=== PATIENT | male | born 1980 | race Hispanic/Latino ===

== ENCOUNTER 2016-12-07 20:55 | Emergency (ER) | payer SELFPAY ==
[2016-12-07 20:59] VITALS: BP 156/103; PULSE 115; RESP 22; O2SAT 92
--- NOTE | 2016-12-07 21:20 | ED.REPORT ---
HPI-Dyspnea / Wheezing Date of Service Dec 07, 2016 ED Provider: Latoya Stanley MD A 36 year old male with no history of smoking presents to the ED complaining of difficulty breathing. This as been intermittently present for the last two months and is exacerbated by strenuous physical activities such as running and playing soccer. He also occasionally feels short of breath when lying flat. The pt denies chest pain or swelling. He experienced cold-like symptoms three weeks ago, but these symptoms seem to have resolved. Nursing Notes Stated Complaint: HARD TIME BREATHING Chief Complaint: Respiratory Complaints Nursing Notes Reviewed: Yes Allergies: Coded Allergies: No Known Allergies (Unverified , 12/07/16) Scheduled Prednisone (PredniSONE) 20 Mg Tablet 40 MG PO DAILY Scheduled PRN Albuterol Sulfate (Ventolin HFA Inhaler) 200 Puff/18 Gm Inhaler 2 PUFF INH Q4 PRN PRN For Wheezing General Time Seen by MD: 21:18 Chief Complaint Shortness of breath Hx Obtained From: Patient Arrived By: Walk-in Sudden in Onset?: No Onset Occurred: More than a week ago... Symptom Duration: Intermittent Recent Healthcare: No recent doctor visit, No recent hospitalization Similar Sx Previous: No Past Medical History Past Medical History none reported Past Surgical History surgery on head for fracture ~10 years ago Smoking History Never Smoker Social History Alcohol Use: "Social" Ambulatory Status Independent Review of Systems Review of Systems Note: denies swelling Constitutional: Denies: Chills, Fever Respiratory: Reports: Shortness of breath, Wheezing Cardiovascular: Denies: Chest pain Musculoskeletal: Denies: Back pain, Neck pain Skin: Denies Rash Complete sys rev & neg: except as marked. Physical Exam Initial Vital Signs Vital Signs (First) Date Time Temp Pulse Resp B/P Pulse Ox O2 Delivery O2 Flow Rate FiO2 12/07/16 20:59 36.2 115 22 156/103 92 Room Air Initial VS: Reviewed General/Constitutional: Awake, Alert Neck: Atraumatic, Supple, Full range of motion Respiratory / Chest: Atraumatic, Breath sounds = bilat, No respiratory distress decreased breath sounds throughout with expiratory wheezing Cardiovascular: Regular rhythm, Heart sounds NL Heart Rate / Rhythm: Positive: Tachycardia ENT: Atraumatic, Airway patent, Mucous membranes moist Abdomen: Atraumatic, Soft, Non-tender Back: Atraumatic, Full range of motion Lower Extremity / Pelvis / MS: Atraumatic, Full range of motion Skin: Atraumatic, Color NL, No rash, Warm, Dry Neurologic: Oriented X3, Speech NL, No motor deficits, No sensory deficits Head / Eyes: Atraumatic, Normocephalic, PERRL, EOMI Upper Extremity / MS: Atraumatic, Full range of motion Psychiatric: Affect NL, Mood NL Interpretation & Diagnostics Lab Results Interpretation Result Diagram: 12/07/16214912/07/16 215 Test 12/07/16 21:50 White Blood Count 9.9th/mm3 (3.8-10.1) Red Blood Count 5.55mil/mm3 (4.40-5.80) Hemoglobin 17.2g/dL (13.8-17.2) Hematocrit 48.0% (41.0-50.0) Mean Corpuscular Volume 86.5fL (81-100) Mean Corpuscular Hemoglobin 31.0pg (27.0-35.0) Mean Corpuscular Hemoglobin Concent 35.8% (32.0-37.0) Red Cell Distribution Width 12.9% (12.3-15.4) Platelet Count 299bil/L (150-400) Neutrophils (%) (Auto) 47.7% (40-74) Lymphocytes (%) (Auto) 28.1% (14-46) Monocytes (%) (Auto) 8.4% (4-12) Eosinophils (%) (Auto) 14.5% (0-5) Basophils (%) (Auto) 1.2% (0-3) Sodium Level 137mEq/L (134-144) Potassium Level 3.7mEq/L (3.5-5.2) Chloride Level 97mEq/L (97-108) Carbon Dioxide Level 24mmol/L (18-29) Blood Urea Nitrogen 10mg/dL (6-20) Creatinine 0.92mg/dL (0.76-1.27) Estimat Glomerular Filtration Rate 98mL/min (>59) Glucose Level 113mg/dL (60-99) Calcium Level 9.4mg/dL (8.5-10.1) Magnesium Level 2.0mg/dL (1.6-2.6) Total Bilirubin 0.5mg/dL (0.0-1.2) Aspartate Amino Transf (AST/SGOT) 66U/L (0-50) Alanine Aminotransferase (ALT/SGPT) 74U/L (0-44) Alkaline Phosphatase 97U/L (25-150) Troponin T < 0.010ug/L (0.0-0.011) Pro-B-Type Natriuretic Peptide 5.00pg/mL (0-86) Total Protein 8.1g/dL (6.4-8.4) Albumin 4.5g/dL (3.4-5.0) Hold Bills Top Tube Received (Received) ECG Interpretation ECG Interpretation: sinus tachycardia with a rate o f[address] elevation T wave inversion in aVR Time: 21:26 Interpreted by: ED physician X-Ray Chest Interpretation Chest Xray Interpretation: IMPRESSION: 1. No acute cardiopulmonary disease. Dictated by: Esequiel Alex M.D. on 12/07/2016 at 21:50 Approved by: Esequiel Alex M.D. on 12/07/2016 at 21:50 Interpretation / Wet Read by: Interpret - Radiologist Re-Eval/Medical Decision Med Decision/Clinical Course 36-year-old male with no past medical history here with shortness of breath which has been getting progressively worse over the last several weeks. Differential diagnosis includes but is not limited to new onset asthma versus asthma exacerbation versus new onset heart failure versus upper respiratory infection. Initially, patient was not moving much air on auscultation. After several breathing treatments, his air movement drastically improved, and when he was discharged he had no wheezing. Labs are unremarkable aside from mild transaminitis, likely secondary to alcohol use. BNP was negative and troponin was normal. I do not feel he has ACS, or requires a repeat troponin at this time. Chest x-ray was normal. Patient was given steroids and an albuterol inhaler to go home with. He has been referred to the residency clinic and is amenable to discharge with follow-up. Re-Evaluation/Progress #1: Time of Eval: 22:38 Patient Status: Condition improved Re-Evaluation/Progress Note: Pt rechecked, who is comfortable. The pt's condition has improved but he is still wheezing. Re-Evaluation/Progress #2: Time of Eval: 23:12 Patient Status: Condition improved Re-Evaluation/Progress Note: Pt rechecked, whose condition has improved significantly with treatment. The diagnosis and plan for discharge are discussed. The pt understands and agrees with the plan. All questions are addressed at this time. Counseled Regarding: Diagnosis, Lab results, Need for follow-up, When/why to return to ED Discharge & Departure Impression: Primary Impression: Wheezing Disposition: Home Discharge Condition All VS Reviewed: Yes Condition: Stable Patient Instructions: Albuterol (By breathing), How to Use a Metered-dose Inhaler (ED) Additional Instructions: Your chest x-ray and EKG were reassuring. Use the albuterol inhaler every 4 hours for the next 48 hours. Take Prednisone daily for the next 4 days. Call your primary care physician in the morning to arrange a follow up appointment for further evaluation. Return to the emergency department if you develop any new or worsening symptoms. La radiografa de trax y ECG sukumar tranquilizadores. Use el inhalador de salbutamol cada 4 horas edith las siguientes 48 horas. Pushpa prednisona al d a edith los prximos 4 weathers. Llame a new mdico de atencin primaria en la ma page para arreglar [place] para la evaluacin adicional de seguimiento. Volver al servicio de urgencias si presenta cualquier sntoma nuevo o que empeora. Referrals: [facility] Residency Clinic Scribe Attestation Portions of this note were transcribed by Garcia Marley. I, Dr. Stanley personally performed the history, physical exam and medical decision-making; I reviewed and confirmed the accuracy of the information in the transcribed note. Signed by: Len Mayorga, 12/07/16 and [id number]. copies to: [facility] Residency Clinic Latoya Stanley MD Dec 07, 2016 21:20 Jamilah Perez Dec 07, 2016 21:27 GARCIA MARLEY Dec 07, 2016 21:36
[2016-12-07] MEDS ORDERED: Albuterol-Ipratropium 3 mL Inhalation Solution NEB ONE (21:50)
[2016-12-07] MEDS ORDERED: predniSONE 20 mg Tablet PO ONE (21:50)
--- NOTE | 2016-12-07 21:52 | DRSVH ---
PROCEDURE: X-RAY CHEST, TWO VIEWS ([id number]) INDICATIONS: Chest pain TECHNIQUE: 2 views of the chest were acquired. COMPARISON: None. FINDINGS: Surgical changes and devices: None. Lungs and pleura: No pleural effusions or pneumothorax. Lungs are clear. Mediastinum: Mediastinal contours are normal. Heart size is normal. Bones and chest wall: No suspicious bony abnormalities. Soft tissues appear unremarkable. IMPRESSION: 1. No acute cardiopulmonary disease. Dictated by: Esequiel Alex M.D. on 12/07/2016 at 21:50 Approved by: Esequiel Alex M.D. on 12/07/2016 at 21:50
[2016-12-07 21:57] VITALS: PULSE 91; RESP 18; O2SAT 96
[2016-12-07 22:05] LABS: BASOPHILS % (AUTO) 1.2 % (0-3); EOSINOPHILS % (AUTO) 14.5 % (0-5); MONOCYTES % (AUTO) 8.4 % (4-12); Mean Corpuscular Volume 86.5 fL (81-100); NEUTROPHILS % (AUTO) 47.7 % (40-74); Platelet Count 299 bil/L (150-400)
[2016-12-07] MEDS ORDERED: Albuterol 2.5 mg/3 mL Inhalation Solution NEB ONE (22:40)
[2016-12-07 22:43] LABS: TROPONIN T < 0.010 ug/L (0.0-0.011)
[2016-12-07 22:52] VITALS: PULSE 98; RESP 18; O2SAT 94
[2016-12-07] MEDS ORDERED: Albuterol HFA 60 Puff 8 Gm Inhaler INHALATION ONE (23:20)
[2016-12-07] MEDS ORDERED: ALBU18HF INH (23:34)
[2016-12-07] MEDS ORDERED: PRE20 PO (23:34)
[2016-12-07] MEDS: _Albuterol-HFA 60 Puff Inhaler INHALATION PRN (23:54)
[2016-12-08 00:23] VITALS: BP 122/68; PULSE 94; RESP 20; O2SAT 95
== END 2016-12-08 00:24 | disposition home or self-care (01) ==
LOC: SED 20:55
DX: R06.2 Wheezing (principal)
CPT/HCPCS: 36415; 71020; 80053; 82948; 83735; 83880; 84484; 85025; 93005; 94640; 94664; 99285; J7613; J7620